=== PATIENT | male | born 1940 | race African-American/Black ===

== ENCOUNTER 2016-12-27 16:04 | Inpatient (IN) | payer OTHER ==
[~2016-12-27] VITALS: Ht 162.6 cm; Wt 60.0 kg
[~2016-12-27 16:04] MED LIST: ACTOS45 MG PO; GLUCOPHAGE500 MG PO; LIPITOR40 MG PO
[2016-12-27 16:34] LABS: EOSINOPHIL (%) 10.6 % (0-5); EOSINOPHIL COUNT 0.5 K/uL (0-0.3); HEMATOCRIT 37.5 % (38.0-50.0); IMMATURE GRANULOCYTE (%) 0.2 % (0.0-0.7); IMMATURE GRANULOCYTE COUNT 0.1 K/uL; LYMPHOCYTE COUNT 0.9 K/uL (1.0-2.8); MCH 28.4 PG (29.0-34.0); MCHC 33.6 G/DL (30.0-36.0); MCV 84.5 FL (86-99); MEAN PLAT.VOLUME 9.4 uM^3 (9.0-12.4); MONOCYTE (%) 8.3 % (3-12); MONOCYTE COUNT 0.4 K/uL (0-0.8); NEUTROPHIL (%) 58.7 % (45-76); NEUTROPHIL COUNT 2.5 K/uL (1.8-6.4); PLATELET COUNT 318 K/uL (156-360); RBC DIS.WIDTH-CV 14.9 % (11.8-14.6); RBC DIS.WIDTH-SD 45.7 % (39-53); RED BLOOD COUNT 4.44 M/uL (4.00-5.50); WHITE BLOOD COUNT 4.3 K/uL (4.1-10.2)
[2016-12-27 16:40] LABS: BASE EXCESS 2.6 mEq/L (-3 to +3); BICARBONATE 27.9 mEq/L (22-26); CARBOXY HGB 1.8 % (0-5); PCO2 45 mm Hg (35-45); PO2 108 mm Hg (80-100)
[2016-12-27 16:41] LABS: COMMENTS - BLOOD GASES +C; FI02 28 %; MECHANICAL RATE 26 resp/min; MODE NIV; PEEP 5 CM/H20; PRES. SUPPORT 12 CM/H2O; SITE LR+A
[2016-12-27 16:56] LABS: TROP-I INTERPRETATION NEGATIVE; TROPONIN-I < 0.01 ng/mL (0.0-0.30)
[2016-12-27 17:07] LABS: CHLORIDE 104 mEq/L (99-109); POTASSIUM 4.4 mEq/L (3.7-5.4); SODIUM 139 mEq/L (136-147)
[2016-12-27 17:08] LABS: GLUCOSE 156 mg/dL (70-99)
[2016-12-27 17:10] LABS: ANION GAP 11 MEQ/L (2-14)
[2016-12-27 17:12] LABS: GFR ESTIMATE (CALCULATED) > 59 mL/min/
[2016-12-27 17:13] LABS: UREA NITROGEN (BUN) 9 mg/dL (9-23)
[2016-12-27 21:12] VITALS: BP 139/63
[2016-12-27 22:12] LABS: POINT-OF-CARE METER ID UU14162513
[2016-12-27 23:36] VITALS: BP 128/57
[2016-12-28 04:28] VITALS: BP 149/69
[2016-12-28 06:35] LABS: IRON 44 MCG/DL (35-150)
[2016-12-28 06:37] LABS: ALKALINE PHOSPHATASE 81 IU/L (3-129); ANION GAP 9 MEQ/L (2-14); CHLORIDE 105 MEQ/L (99-109); GFR ESTIMATE (CALCULATED) > 59 mL/min/; HEMATOCRIT 31.5 % (38.0-50.0); MCH 28.6 PG (29.0-34.0); MCHC 33.7 G/DL (30.0-36.0); MCV 85.1 FL (86-99); MEAN PLAT.VOLUME 10.4 uM^3 (9.0-12.4); PLATELET COUNT 309 K/uL (156-360); POTASSIUM 4.1 MEQ/L (3.7-5.4); RBC DIS.WIDTH-CV 14.9 % (11.8-14.6); RBC DIS.WIDTH-SD 46.7 % (39-53); SAMPLE HEMOLYSIS CHECK 0; SAMPLE ICTERIC CHECK 0; SAMPLE LIPEMIA CHECK 0; SODIUM 137 MEQ/L (136-147); TOTAL BILIRUBIN 0.4 MG/DL (0.0-1.0); UREA NITROGEN (BUN) 13 mg/dL (9-23); WHITE BLOOD COUNT 3.2 K/uL (4.1-10.2)
[2016-12-28 06:59] LABS: GLUCOSE 347 mg/dL (70-99)
[2016-12-28 07:05] VITALS: BP 125/60
[2016-12-28 07:07] LABS: Estimated Average Glucose 169 mg/dL (70-123); HEMOGLOBIN A1c (GLYCOHEMOGLOB) 7.5 % HGB (Below 5.7)
[2016-12-28 08:21] LABS: FERRITIN 11 NG/ML (22-322)
[2016-12-28 09:40] LABS: GLUCOSE 315 mg/dL (70-99)
[2016-12-28 12:33] LABS: POINT-OF-CARE METER ID UU14162513
[2016-12-28 13:03] VITALS: BP 141/65
[2016-12-28 16:25] LABS: POINT-OF-CARE METER ID UU13113725
[2016-12-28 23:01] VITALS: BP 143/66
[2016-12-29 07:58] VITALS: BP 138/77
[2016-12-29 11:32] VITALS: BP 185/81
[2016-12-29 11:53] LABS: POINT-OF-CARE METER ID UU13113725
[2016-12-29 15:42] VITALS: BP 162/73
[2016-12-29 16:24] LABS: POINT-OF-CARE METER ID UU13113725
[2016-12-29 19:37] VITALS: BP 141/67
[2016-12-29 21:15] LABS: POINT-OF-CARE METER ID UU13113725
[2016-12-29 23:34] VITALS: BP 122/57
[2016-12-30 03:23] LABS: POINT-OF-CARE METER ID UU13113725
[2016-12-30 03:43] VITALS: BP 146/69
[2016-12-30 05:47] LABS: POINT-OF-CARE METER ID UU13113725
[2016-12-30 08:09] VITALS: BP 193/84
[2016-12-30 09:14] VITALS: BP 142/82
[2016-12-30 15:59] VITALS: BP 176/79
[2016-12-30 18:05] VITALS: BP 156/70
[2016-12-31] VITALS (7 sets, daily range): BP systolic 117–185; BP diastolic 58–81
[2016-12-31 06:41] LABS: EOSINOPHIL (%) 0 % (0-5); HEMATOCRIT 32.1 % (38.0-50.0); IMMATURE GRANULOCYTE (%) 0.2 % (0.0-0.7); LYMPHOCYTE COUNT 0.4 K/uL (1.0-2.8); MCH 28.9 PG (29.0-34.0); MCV 85.1 FL (86-99); MEAN PLAT.VOLUME 10.5 uM^3 (9.0-12.4); MONOCYTE (%) 3.3 % (3-12); MONOCYTE COUNT 0.2 K/uL (0-0.8); NEUTROPHIL (%) 90.3 % (45-76); NEUTROPHIL COUNT 5.1 K/uL (1.8-6.4); PLATELET COUNT 276 K/uL (156-360); RBC DIS.WIDTH-CV 15.1 % (11.8-14.6); RED BLOOD COUNT 3.77 M/uL (4.00-5.50)
[2016-12-31 06:42] LABS: WHITE BLOOD COUNT 5.7 K/uL (4.1-10.2)
[2016-12-31 06:57] LABS: ANION GAP 9 MEQ/L (2-14); CHLORIDE 99 MEQ/L (99-109); GFR ESTIMATE (CALCULATED) > 59 mL/min/; GLUCOSE 271 mg/dL (70-99); POTASSIUM 4.2 MEQ/L (3.7-5.4); SAMPLE HEMOLYSIS CHECK 0; SAMPLE ICTERIC CHECK 0; SAMPLE LIPEMIA CHECK 0; SODIUM 137 MEQ/L (136-147)
[2016-12-31 06:59] LABS: UREA NITROGEN (BUN) 21 mg/dL (9-23)
[2016-12-31 07:21] LABS: BASE EXCESS 4.3 mEq/L (-3 to +3); BICARBONATE 29.2 mEq/L (22-26); CARBOXY HGB 1.6 % (0-5); COMMENTS - BLOOD GASES A+C+; DEVICE NC; METHEMOGLOBIN 1.6 % (0-1.5); O2 FLOW 2 L/MIN; PCO2 44 mm Hg (35-45); PO2 144 mm Hg (80-100); SITE RR; TOTAL RESP RATE 24 resp/min; pH 7.43 (7.35-7.45)
[2016-12-31 08:05] LABS: ANION GAP 12 MEQ/L (2-14); CHLORIDE 99 MEQ/L (99-109); GFR ESTIMATE (CALCULATED) > 59 mL/min/; GLUCOSE 280 mg/dL (70-99); POTASSIUM 4.2 MEQ/L (3.7-5.4); SAMPLE HEMOLYSIS CHECK 0; SAMPLE ICTERIC CHECK 0; SAMPLE LIPEMIA CHECK 0; SODIUM 136 MEQ/L (136-147); UREA NITROGEN (BUN) 22 mg/dL (9-23)
[2016-12-31 08:08] LABS: TROP-I INTERPRETATION NEGATIVE; TROPONIN-I 0.03 ng/mL (0.0-0.30)
[2016-12-31 15:54] LABS: TROP-I INTERPRETATION NEGATIVE; TROPONIN-I 0.04 ng/mL (0.0-0.30)
[2016-12-31 16:17] LABS: POINT-OF-CARE METER ID UU13113725
[2016-12-31 20:42] LABS: POINT-OF-CARE METER ID UU13113725
[2017-01-01 03:52] VITALS: BP 142/67
[2017-01-01 06:03] LABS: POINT-OF-CARE METER ID UU13113725
[2017-01-01 07:56] VITALS: BP 170/67
[2017-01-01 11:23] VITALS: BP 161/72
[2017-01-01 15:52] VITALS: BP 152/65
[2017-01-01 18:51] VITALS: BP 147/61
[2017-01-01 22:29] VITALS: BP 132/62
[2017-01-02 03:16] VITALS: BP 145/63
[2017-01-02 15:43] VITALS: BP 146/64
[2017-01-02 18:35] VITALS: BP 127/63
[2017-01-02 23:32] VITALS: BP 131/70
[2017-01-03 07:03] VITALS: BP 132/68
[2017-01-03] MEDS ORDERED: ADVAIR HFA120 INHALA IH (10:35)
[2017-01-03] MEDS ORDERED: LISINOPRIL-HCT1 EACH PO (10:35)
[2017-01-03] MEDS ORDERED: SPIRIVA RESPIMAT4 GM IH (10:35)
[2017-01-03] MEDS ORDERED: DUONEB 2.5-0.5 M3 ML AEROSOL (10:35)
[2017-01-03] MEDS ORDERED: METFORMIN HCL500 MG PO (10:35)
[2017-01-03] MEDS ORDERED: NOVOLOG PE100 UNITS/ SC (10:35)
[2017-01-03] MEDS ORDERED: PREDNISONE5 MG PO (10:35)
[2017-01-03] MEDS ORDERED: LEVOFLOXACIN750 MG PO (10:35)
[2017-01-03] MEDS ORDERED: FAMOTIDINE20 MG PO (10:35)
[2017-01-03] MEDS ORDERED: ALPRAZOLAM0.25 M2 PO (10:35)
== END 2017-01-03 16:30 | disposition home health service (06) | DRG 190 ==
LOC: EME 16:04 → EDOF 19:19 → 5WEST 19:19 → EDOF 19:19 → 5WEST 20:59 → 5EAST 12-28 10:40 → 5WEST 12-28 10:40 → 5EAST 12-28 12:45
PROVIDERS: Emergency Medicine; Hospitalist; Internal Medicine
PROC: 5A09358 Assistance with Respiratory Ventilation, Less than 24 Consecutive Hours, Intermittent Positive Airway Pressure (ICD-10-PCS; principal; 2016-12-27)
DX: J44.1 Chronic obstructive pulmonary disease with (acute) exacerbation (principal); J96.01 Acute respiratory failure with hypoxia; J44.0 Chronic obstructive pulmonary disease with (acute) lower respiratory infection; J20.9 Acute bronchitis, unspecified; I69.354 Hemiplegia and hemiparesis following cerebral infarction affecting left non-dominant side; E11.65 Type 2 diabetes mellitus with hyperglycemia; F01.50 Vascular dementia, unspecified severity, without behavioral disturbance, psychotic disturbance, mood disturbance, and anxiety; I10 Essential (primary) hypertension; N40.0 Benign prostatic hyperplasia without lower urinary tract symptoms; Z87.891 Personal history of nicotine dependence; Z23 Encounter for immunization
CPT/HCPCS: 36600; 71010; 74230; 80048; 80048 91; 80053; 82728; 82803; 82947 91; 82948; 83036; 83540; 84466; 84484; 85025; 85027; 87040; 92610 GN; 92611 GN; 93005; 94002; 94640; 94640 76; 94644; 94760; 94799; 99281; 99285; G0008; G0378; G8978 GP CJ; G8979 GP CI; G8987 GO CJ; G8988 CI; J0360; J0456; J0696; J1644; J1815; J2920; J2930; J7030; J7050; J7512